=== PATIENT | male | born 1940 | race Caucasian/White ===

== ENCOUNTER 2020-06-06 16:30 | Outpatient (RCR) | payer MEDICARE, SELFPAY ==
[2020-03-12 12:21] VITALS: PULSE 61
[2020-04-27 08:01] LABS: Glucose Point of Care 70 (65-105)
[2020-04-27 08:01] LABS: Glucose Point of Care 98 (65-105)
== END 2020-06-06 18:37 | disposition home or self-care (01) ==
LOC: ANHCPREHAB 16:30
DX: Z95.1 Presence of aortocoronary bypass graft (principal)
CPT/HCPCS: 93798